=== PATIENT | female | born 1970 | race Caucasian/White ===

== ENCOUNTER 2021-11-15 11:12 | Emergency (ER) | payer SELFPAY ==
[2021-11-15] VITALS (7 sets, daily range): BP systolic 139–160; BP diastolic 87–97
[~2021-11-15] VITALS: Ht 167.6 cm; Wt 70.4 kg
[2021-11-15 13:12] LABS: HEMOGLOBIN 12.8 g/dl (12.0-16.0); IMMATURE GRANULOCYTES 0.2 % (0.0-5.0); MEAN CELL VOLUME 86.9 fL CALC (80.0-100.0); MEAN CORPUSCULAR HGB 28.5 pG CALC (26.0-32.0); MEAN CORPUSCULAR HGB CONC 32.8 g/dL CAL (32.0-36.0); NEUT# 3.92 thou/uL (2.00-7.15); RED BLOOD COUNT 4.49 mill/uL (4.20-5.60); RED CELL DISTRI WIDTH 13.5 % (11.5-15.5)
[2021-11-15] MEDS ORDERED: BACTRIM DS1 TAB PO (13:55)
[2021-11-15] MEDS ORDERED: KEFLEX500 MG PO (13:55)
[2021-11-15 13:57] LABS: ALBUMIN 4.4 g/dL (3.2-5.0); ALKALINE PHOSPHATASE 76 u/l (38-126); ANION GAP 13 (6-22 (CALC)); BILIRUBIN, TOTAL 0.6 mg/dL (0.0-1.4); BUN 9 mg/dL (7-17); BUN/CREATININE RATIO 12 (12-20 (CALC)); CARBON DIOXIDE 25 mmol/l (22-30); CHLORIDE 104 mmol/l (95-108); CREATININE 0.8 mg/dL (0.5-1.0); GFR FOR AFR.AMER. > 60 ML/MIN (>=60 (CALC)); GFR OTHER RACES > 60 ML/MIN (>=60 (CALC)); POTASSIUM 3.9 mmol/l (3.5-5.1); SGOT/AST 22 u/l (14-36); SODIUM 138 mmol/l (137-146); TOTAL PROTEIN 8.1 g/dL (6.3-8.2)
== END 2021-11-15 14:05 | disposition home or self-care (01) | DRG 603 ==
LOC: ED 11:12
PROVIDERS: Nurse Practitioner
DX: L02.414 Cutaneous abscess of left upper limb (principal); B95.7 Other staphylococcus as the cause of diseases classified elsewhere